=== PATIENT | female | born 1995 | race African-American/Black ===

== ENCOUNTER 2024-08-10 07:51 | Emergency (ER) | payer BC ==
[~2024-08-10] VITALS: Ht 157.5 cm; Wt 70.0 kg
[2024-08-10 07:58] VITALS: TEMP 98.3
[2024-08-10 08:38] LABS: BASO % 0.5 % (0.0-2.0); EOS # 0.1 K/mm3 (0.0-0.7); EOS % 2.2 % (0.0-4.0); GRAN % 50.2 % (42.2-75.2); HEMOGLOBIN 10.1 g/dl (12.5-16.0); LYMPH # 2.4 K/mm3 (1.2-3.4); LYMPH % 39.4 % (20.0-51.0); MEAN CELL VOLUME 93 fl (80.0-100.0); MEAN CORPUSCULAR HEMOGLOBIN 29 pg (27-31); MEAN CORPUSCULAR HGB CONC 32 g/dl (33.0-37.0); MEAN PLATELET VOLUME 10.8 fl (7.4-10.4); MONO # 0.4 K/mm3 (0.1-0.6); MONO % 7.4 % (1.7-9.3); PLATELET COUNT 277 K/mm3 (130-400); RED BLOOD COUNT 3.43 M/mm3 (4.10-5.30); REDCELL DISTRIBUTION WIDTH-CV 12.3 % (11.5-14.5)
[2024-08-10 08:41] LABS: HEMATOCRIT 31.8 % (37.0-47.0)
[2024-08-10 09:02] LABS: ALANINE AMINOTRANSFERASE 6 U/L (0-55); ALBUMIN 3.7 g/dL (3.5-5.0); ALKALINE PHOSPHATASE 31 U/L (40-150); ANION GAP 8 mmol/L (7-16); AST,SGOT 12 U/L (5-34); BILIRUBIN,TOTAL 0.5 mg/dL (0.2-1.2); BLOOD UREA NITROGEN 11 mg/dL (7-19); CALCIUM 8.7 mg/dL (8.4-10.2); CHLORIDE 110 mEq/L (98-107); CREATININE, serum 0.82 mg/dL (0.57-1.11); GLUCOSE 93 mg/dL (70-99); POTASSIUM 3.7 mEq/L (3.5-4.5); SODIUM 140 mEq/L (136-145); TOTAL PROTEIN 6.6 g/dl (6.2-8.1)
[2024-08-10 09:11] LABS: HCG,QUANTITATIVE < 1 mIU/mL
[2024-08-10] MEDS ORDERED: Acetaminophen 325 MG TAB PO ONE (09:15)
[2024-08-10] MEDS ORDERED: NORCO 325 MG-51 TAB PO (10:12)
[2024-08-10 10:43] VITALS: BP 117/79; PULSE 62
== END 2024-08-10 11:02 | disposition home or self-care (01) ==
LOC: COL.ER 07:51
PROVIDERS: Family Medicine
DX: R10.2 Pelvic and perineal pain (principal); N83.201 Unspecified ovarian cyst, right side; Z32.02 Encounter for pregnancy test, result negative